=== PATIENT | male | born 1960 | race Caucasian/White ===

== ENCOUNTER 2023-01-06 08:47 | Emergency (ER) | payer BC ==
[~2023-01-06] VITALS: Ht 182.9 cm; Wt 90.9 kg
[2023-01-06 08:55] VITALS: BP 147/70
[2023-01-06] MEDS ORDERED: rabies immune globulin/PF 150 unit/ml inj IMVAC STA (09:54)
[2023-01-06] MEDS ORDERED: rabies vaccine (PCEC)/PF 2.5 unit kit IMVAC ONE (09:55)
[2023-01-06] MEDS ORDERED: TETanus/Pertussis (Acell)/Diphther VAC/PF (Tdap-Adult) 0.5ml syringe IMVAC ONE (10:05)
== END 2023-01-06 11:06 | disposition home or self-care (01) ==
LOC: ER 08:48
DX: S50.812D Abrasion of left forearm, subsequent encounter (principal); Z88.2 Allergy status to sulfonamides; W55.01XD Bitten by cat, subsequent encounter
CPT/HCPCS: 90376; 90471; 90472; 90675; 90715; 96372; 99284

== ENCOUNTER 2023-01-09 06:35 | Emergency (ER) | payer BC ==
[~2023-01-09] VITALS: Ht 182.9 cm; Wt 93.6 kg
[2023-01-09 06:42] VITALS: BP 140/83
[2023-01-09] MEDS ORDERED: rabies vaccine (PCEC)/PF 2.5 unit kit IMVAC ONE (07:00)
== END 2023-01-09 07:35 | disposition home or self-care (01) ==
LOC: ER 06:36
DX: S61.532D Puncture wound without foreign body of left wrist, subsequent encounter (principal); Z88.2 Allergy status to sulfonamides; W55.01XD Bitten by cat, subsequent encounter
CPT/HCPCS: 90471; 90675; 99281

== ENCOUNTER 2023-01-13 06:06 | Emergency (ER) | payer BC ==
[~2023-01-13] VITALS: Ht 182.9 cm; Wt 90.9 kg
[2023-01-13 06:17] VITALS: BP 139/85
[2023-01-13] MEDS ORDERED: rabies vaccine (PCEC)/PF 2.5 unit kit IMVAC ONE (06:45)
== END 2023-01-13 07:09 | disposition home or self-care (01) ==
LOC: ER 06:06
DX: S51.832D Puncture wound without foreign body of left forearm, subsequent encounter (principal); Z79.899 Other long term (current) drug therapy; W55.01XD Bitten by cat, subsequent encounter
CPT/HCPCS: 90471; 90675; 99281

== ENCOUNTER 2023-01-20 05:47 | Emergency (ER) | payer BC ==
[~2023-01-20] VITALS: Ht 182.9 cm; Wt 90.9 kg
[2023-01-20 06:01] VITALS: BP 141/76
[2023-01-20] MEDS ORDERED: rabies vaccine (PCEC)/PF 2.5 unit kit IMVAC ONE (06:40)
== END 2023-01-20 07:13 | disposition home or self-care (01) ==
LOC: ER 05:48
DX: S61.532D Puncture wound without foreign body of left wrist, subsequent encounter (principal); Z23 Encounter for immunization; W55.01XD Bitten by cat, subsequent encounter
CPT/HCPCS: 90471; 90675; 99281